=== PATIENT | female | born 1995 | race Caucasian/White ===

== ENCOUNTER 2018-06-07 18:34 | Outpatient (REF) | payer SELFPAY | END 2018-06-07 18:54 | LOC: LBN 18:34 | PROVIDERS: PCP Nurse Practitioner Family; Visit Provider Nurse Practitioner Family | DX: J02.9 Acute pharyngitis, unspecified (principal) | CPT/HCPCS: 87070 ==

== ENCOUNTER 2018-09-13 10:25 | Outpatient (CLI) | payer MEDICAID, SELFPAY ==
[2018-09-13 12:08] LABS: HCG Quant, Pregnancy 2 mIU/mL (1-3)
== END 2018-09-13 10:45 ==
PROVIDERS: PCP Nurse Practitioner Family; Visit Provider Nurse Practitioner Family
DX: N92.6 Irregular menstruation, unspecified (principal)
CPT/HCPCS: 36415; 84702

== ENCOUNTER 2018-11-12 10:29 | Outpatient (CLI) | payer MEDICAID, SELFPAY ==
[2018-11-12 11:18] LABS: Abs Immature Grans 0.01 k/cumm (0.0-0.09); Absolute Basophil Count 0.01 k/cumm (0.0-0.2); Absolute Eosinophil Count 0.03 k/cumm (0.0-0.7); Absolute Lymphocyte Count 1.73 k/cumm (1.2-3.4); Absolute Monocyte Count 0.36 k/cumm (0.11-0.7); Absolute Neutrophil Count 4.74 k/cumm (1.2-6.7); Basophils % 0.1; Eosinophils % 0.4; HCT 37.1 % (36.0-46.0); HGB 13.3 g/dL (12.0-15.5); Immature Grans % 0.1; Lymphocytes % 25.1; Mean Corp. HGB Concentration 35.8 g/dL (32.0-36.0); Mean Corpuscular Hemoglobin 31.9 pg (27.0-33.0); Mean Platelet Volume 9.8 fL (8.0-11.0); Monocytes % 5.2; Neutrophils % 69.1; Platelet Count 229 x1000/uL (130-400); RBC 4.17 m/cumm (4.00-5.20); RBC Distribution Width 11.5 % (11.7-14.6); White Blood Cell Count 6.88 k/cumm (4.4-10.8)
[2018-11-13 10:38] LABS: HIV-1/2 Ag & Ab Screen Negative (NEGAT)
[2018-11-15 09:17] LABS: Hepatitis B Surface Ag Negative (NEGAT)
[2018-11-15 09:49] LABS: Hepatitis C Ab w Rflx HCV PCR Negative (NEGAT)
[2018-11-15 12:45] LABS: Syphilis Serology (RPR) Negative (Negative)
[2018-11-15 12:48] LABS: Rubella IgG Ab (UVM) Positive; Varicella IgG Antibody Positive
== END 2018-11-12 10:49 ==
PROVIDERS: PCP Nurse Practitioner Family; Visit Provider Advanced Practice Midwife
DX: Z34.91 Encounter for supervision of normal pregnancy, unspecified, first trimester (principal); Z11.4 Encounter for screening for human immunodeficiency virus [HIV]; Z01.84 Encounter for antibody response examination; Z11.59 Encounter for screening for other viral diseases
CPT/HCPCS: 36415; 80055; 86787; 86803; 86850; 86900; 86901; 87340; 87389; 86592; 86762

== ENCOUNTER 2018-11-12 12:36 | Outpatient (REF) | payer MEDICAID, SELFPAY ==
[2018-11-12 18:50] LABS: *AMPHETAMINES SCREEN URINE Negative (Negative); *BARBITURATES SCREEN URINE Negative (Negative); *BENZODIAZEPINES SCREEN URINE Negative (Negative); Cannabinoids THC Negative (Negative); Cocaine Screen,Urine Negative (Negative); METHADONE URINE SCREEN Negative (Negative); OPIATES URINE SCREEN Negative (Negative)
[2018-11-12 19:03] LABS: Tricyclic Antidepressants Negative (Negative)
[2018-11-15 14:36] LABS: Chlamydia Result Negative; GC Result Negative; Specimen Description URINE
[2018-11-15 17:17] LABS: Buprenorphine Negative; Norbuprenorphine Negative
== END 2018-11-12 12:56 ==
LOC: LBN 12:36
PROVIDERS: PCP Nurse Practitioner Family; Visit Provider Advanced Practice Midwife
DX: Z34.91 Encounter for supervision of normal pregnancy, unspecified, first trimester (principal); Z11.3 Encounter for screening for infections with a predominantly sexual mode of transmission
CPT/HCPCS: 80307; 87491; 87591; 87086

== ENCOUNTER 2018-12-10 11:02 | Outpatient (CLI) | payer MEDICAID, SELFPAY ==
[2018-12-10 11:27] LABS: Kit/Specimen SENT
== END 2018-12-10 11:22 ==
PROVIDERS: PCP Nurse Practitioner Family; Visit Provider Advanced Practice Midwife
DX: Z34.91 Encounter for supervision of normal pregnancy, unspecified, first trimester (principal); Z36.89 Encounter for other specified antenatal screening
CPT/HCPCS: 36415

== ENCOUNTER 2019-01-27 00:48 | Outpatient (CLI) | payer MEDICAID, SELFPAY ==
--- NOTE | 2019-01-27 08:04 | DI.US_ITS ---
Predicted Gestational Age: Indication/History: ROUTINE CARE,Z34.90 18.5 Wks Range: 17.5 to 19.5 Prior US done on: Determined by: First US LMP History EDC by prior US: 06/25/19 For multiple gestations: Baby PLACENTA: Grade: I Location: Anterior Posterior X PRESENTATION: RT LT LOW LYING PREVIA Cephalic X Trans (Head RT LT ) Varied Breech BIOMETRY: Anatomy Identified: BPD: 40 mm 18.1 wks 4 chamber Heart X Heart Rate 158 BPM HC: 154 mm 18.3 wks LVOT X Post Fossa X AC: 122 mm 17.6 wks RVOT X Ventricles X FL: 26 mm 18 wks Stomach X Nose X Bladder X Lips X Cisterna Magna: 2.1 mm CI: 77 Kidneys X Palate X Cerebellum: 1.86 mm 3 vessel cord X Spine X EFW: 217 grms 11 th % Cord Insertion X NS= not seen Composite Age (US) 18.1 wks Many abnormalities cannot be diagnosed. A normal exam does not exclude congenital abnormality. EDC by US 06/29/19 Amniotic Fluid Index: Normal COMMENTS: RUQ: LUQ: RLQ: LLQ: Total: cm Biophysical Profile: Score 0/2 JOHAN (>2cm) Respirations (>30 sec) Body flexion/extension Extremity flexion/extension TOTAL SCORE Please see the OB ultrasound worksheet for complete details.
[2019-01-28 17:38] LABS: AFP 51.8 ng/mL; Calculated age at EDD 24 years; Cigarette smoking status non-smoker; GA used in risk estimate Scan estimate; IVF Pregnancy No; Initial or repeat testing Initial testing; Insulin dependent diabetes No; Maternal Weight 120 lbs; Number of Fetuses 1; Physician Phone Number 802-748-7300; Prev Pregnancy w/NTD No; RECOMMENDED FOLLOW UP None.; Results Summary Normal risk
== END 2019-01-27 01:08 ==
PROVIDERS: PCP Nurse Practitioner Family; Visit Provider Advanced Practice Midwife
DX: Z34.92 Encounter for supervision of normal pregnancy, unspecified, second trimester (principal); Z36.89 Encounter for other specified antenatal screening
CPT/HCPCS: 36415; 76805; 82105

== ENCOUNTER 2019-04-08 08:39 | Outpatient (CLI) | payer MEDICAID, SELFPAY ==
[2019-04-08 09:43] LABS: Glucose,1 Hr (Glucola) 142 mg/dL (80-140)
[2019-04-08 10:07] LABS: HGB 11.5 g/dL (12.0-15.5); Mean Corp. HGB Concentration 34.8 g/dL (32.0-36.0); Mean Corpuscular Hemoglobin 33.1 pg (27.0-33.0); Mean Corpuscular Volume 95.1 fL (80-95); Mean Platelet Volume 9.6 fL (8.0-11.0); Platelet Count 215 x1000/uL (130-400); RBC 3.47 m/cumm (4.00-5.20); RBC Distribution Width 12.8 % (11.7-14.6); White Blood Cell Count 7.59 k/cumm (4.4-10.8)
== END 2019-04-08 08:59 ==
PROVIDERS: Advanced Practice Midwife; PCP Nurse Practitioner Family; Visit Provider Advanced Practice Midwife
DX: Z34.93 Encounter for supervision of normal pregnancy, unspecified, third trimester (principal)
CPT/HCPCS: 36415; 82950; 85027

== ENCOUNTER 2019-04-12 09:11 | Outpatient (CLI) | payer MEDICAID, SELFPAY ==
[2019-04-12 11:20] LABS: Glucose 1 Hour 167 mg/dL
[2019-04-12 13:08] LABS: Glucose 3 Hour 138 mg/dL
== END 2019-04-12 09:31 ==
PROVIDERS: PCP Nurse Practitioner Family; Visit Provider Advanced Practice Midwife
DX: R73.09 Other abnormal glucose (principal)
CPT/HCPCS: 36415; 82951

== ENCOUNTER 2019-05-27 11:29 | Outpatient (CLI) | payer MEDICAID, SELFPAY ==
[2019-05-27 12:10] LABS: HCT 34.4 % (36.0-46.0); HGB 11.6 g/dL (12.0-15.5); Mean Corp. HGB Concentration 33.7 g/dL (32.0-36.0); Mean Corpuscular Hemoglobin 32.3 pg (27.0-33.0); Mean Corpuscular Volume 95.8 fL (80-95); Mean Platelet Volume 9.3 fL (8.0-11.0); Platelet Count 224 x1000/uL (130-400); RBC 3.59 m/cumm (4.00-5.20); RBC Distribution Width 13.7 % (11.7-14.6); White Blood Cell Count 7.52 k/cumm (4.4-10.8)
== END 2019-05-27 11:49 ==
PROVIDERS: PCP Nurse Practitioner Family; Visit Provider Advanced Practice Midwife
DX: Z34.91 Encounter for supervision of normal pregnancy, unspecified, first trimester (principal)
CPT/HCPCS: 36415; 85027

== ENCOUNTER 2019-05-27 14:43 | Outpatient (REF) | payer MEDICAID, SELFPAY ==
[2019-05-27 15:48] LABS: *AMPHETAMINES SCREEN URINE Negative (Negative); *BARBITURATES SCREEN URINE Negative (Negative); *BENZODIAZEPINES SCREEN URINE Negative (Negative); Cannabinoids THC Negative (Negative); Cocaine Screen,Urine Negative (Negative); METHADONE URINE SCREEN Negative (Negative); OPIATES URINE SCREEN Negative (Negative)
[2019-05-27 16:24] LABS: Tricyclic Antidepressants Negative (Negative)
[2019-06-02 10:01] LABS: Buprenorphine Negative
== END 2019-05-27 15:03 ==
LOC: LBN 14:43
PROVIDERS: PCP Nurse Practitioner Family; Visit Provider Advanced Practice Midwife
DX: Z34.93 Encounter for supervision of normal pregnancy, unspecified, third trimester (principal); Z36.85 Encounter for antenatal screening for Streptococcus B
CPT/HCPCS: 80307; 87081

== ENCOUNTER 2019-06-17 16:18 | Inpatient (IN) | payer MEDICAID, SELFPAY ==
[2019-06-17 18:22] LABS: HCT 33.5 % (36.0-46.0); HGB 11.2 g/dL (12.0-15.5); Mean Corp. HGB Concentration 33.4 g/dL (32.0-36.0); Mean Corpuscular Hemoglobin 31.5 pg (27.0-33.0); Mean Corpuscular Volume 94.4 fL (80-95); Mean Platelet Volume 9.8 fL (8.0-11.0); Platelet Count 228 x1000/uL (130-400); RBC 3.55 m/cumm (4.00-5.20); RBC Distribution Width 13.5 % (11.7-14.6); White Blood Cell Count 6.96 k/cumm (4.4-10.8)
[2019-06-18] MEDS: Ibuprofen 600 MG TAB PO ×3 (03:14→21:05)
[2019-06-18] MEDS: miSOPROStol 200 MCG TAB 400 MCG SL (04:23)
[2019-06-18] MEDS: Methylergonovine 0.2 MG/ML VIAL IM (04:40)
[2019-06-18] MEDS: oxyCODONE 5 mg/Acetaminophen 325 mg TAB 1 TAB PO (05:36)
[2019-06-18 13:10] LABS: HCT 25.9 % (36.0-46.0); HGB 8.7 g/dL (12.0-15.5); Mean Corp. HGB Concentration 33.6 g/dL (32.0-36.0); Mean Corpuscular Hemoglobin 31.9 pg (27.0-33.0); Mean Corpuscular Volume 94.9 fL (80-95); Platelet Count 172 x1000/uL (130-400); RBC 2.73 m/cumm (4.00-5.20); RBC Distribution Width 13.3 % (11.7-14.6); White Blood Cell Count 12.17 k/cumm (4.4-10.8)
[2019-06-18] MEDS: Lactated Ringers 1,000 ML 125 ML IV ×2 (14:00→22:33)
[2019-06-18] MEDS: Acetaminophen 325 MG TAB (16:18)
[2019-06-18] MEDS: Hamamelis Leaf/Glycerin 100 EACH BOX PR (16:45)
[2019-06-18] MEDS: Normal Saline Flush 10 ML SYR IVP (16:46)
[2019-06-19] MEDS: Lactated Ringers 1,000 ML 125 ML IV (06:04)
[2019-06-19 07:24] LABS: HCT 23.5 % (36.0-46.0); HGB 7.5 g/dL (12.0-15.5); Mean Corp. HGB Concentration 31.9 g/dL (32.0-36.0); Mean Corpuscular Hemoglobin 31.4 pg (27.0-33.0); Mean Corpuscular Volume 98.3 fL (80-95); Mean Platelet Volume 9.4 fL (8.0-11.0); Platelet Count 157 x1000/uL (130-400); RBC 2.39 m/cumm (4.00-5.20); RBC Distribution Width 13.7 % (11.7-14.6)
[2019-06-19] MEDS: Acetaminophen 325 MG TAB 650 MG PO (10:49)
[2019-06-19] MEDS: Ibuprofen 600 MG TAB PO ×2 (10:49→20:05)
[2019-06-19] MEDS: Ferrous Sulfate 325 MG TAB PO (20:03)
[2019-06-19] MEDS: Sertraline 50 MG TAB PO (21:50)
[2019-06-20] MEDS: Ferrous Sulfate 325 MG TAB PO (08:35)
[2019-06-20] MEDS: Ibuprofen 600 MG TAB PO (08:35)
[2019-06-20 09:51] LABS: HCT 25.1 % (36.0-46.0); Mean Corp. HGB Concentration 31.9 g/dL (32.0-36.0); Mean Corpuscular Hemoglobin 31.5 pg (27.0-33.0); Mean Corpuscular Volume 98.8 fL (80-95); Mean Platelet Volume 9.5 fL (8.0-11.0); Platelet Count 166 x1000/uL (130-400); RBC 2.54 m/cumm (4.00-5.20); RBC Distribution Width 13.6 % (11.7-14.6); White Blood Cell Count 7.96 k/cumm (4.4-10.8)
[2019-06-20] MEDS: Hamamelis Leaf/Glycerin 100 EACH BOX PR (12:00)
== END 2019-06-20 12:40 | disposition home or self-care (01) | DRG 806 ==
PROVIDERS: Admitting Provider Advanced Practice Midwife; PCP Nurse Practitioner Family; Visit Provider Advanced Practice Midwife
DX: O42.02 Full-term premature rupture of membranes, onset of labor within 24 hours of rupture (principal); O72.2 Delayed and secondary postpartum hemorrhage; Z37.0 Single live birth; D62 Acute posthemorrhagic anemia; O99.354 Diseases of the nervous system complicating childbirth; Z3A.38 38 weeks gestation of pregnancy; O69.2XX0 Labor and delivery complicated by other cord entanglement, with compression, not applicable or unspecified; O99.344 Other mental disorders complicating childbirth; Z87.59 Personal history of other complications of pregnancy, childbirth and the puerperium; F41.9 Anxiety disorder, unspecified; G25.81 Restless legs syndrome
CPT/HCPCS: 36415; 85027; 86850; 86900; 86901; J2210; J3490

== ENCOUNTER 2019-06-29 01:06 | Outpatient (CLI) | payer MEDICAID, SELFPAY ==
--- NOTE | 2019-06-29 14:41 | DI.US_ITS ---
EXAM: US EXTREMITY VENOUS BI CLINICAL HISTORY: Thrombosis of varicosity left groin I86.3 TECHNIQUE: Ultrasound performed using standard protocol. COMPARISON: No exams were available for comparison FINDINGS: Right lower extremity: No thrombus is visible. The deep venous system is freely compressible. The Doppler venous wave form augments normally. No superficial thrombophlebitis is seen. There is no ev idence of Mcconnell's cyst. Left lower extremity: There are dilated superficial veins in the left groin region which are noncompr essible and contain thrombus. The deep venous system appears patent. No deep venous thrombosis is s een. The Doppler venous wave form augments normally . IMPRESSION: Right: Negative right lower extremity ultrasound. Left: Superficial thrombophlebitis. No evidence of deep venous thrombosis.
== END 2019-06-29 01:26 ==
PROVIDERS: PCP Nurse Practitioner Family; Visit Provider Advanced Practice Midwife
DX: I82.812 Embolism and thrombosis of superficial veins of left lower extremity (principal)
CPT/HCPCS: 93970

== ENCOUNTER 2019-08-22 21:05 | Emergency (ER) | payer MEDICAID, SELFPAY ==
[2019-08-22 21:15] VITALS: BP 112/66; PULSE 98; RESP 16; TEMP 37.1; O2SAT 100
--- NOTE | 2019-08-22 21:31 | ED.GENADUL_ITS ---
Discharge Plan Disposition Patient Disposition: HOME Condition: Good Discharge Details Chief Complaint: GenMedical Clinical Impression: Mastitis Primary Care Provider: Unknown,Unknown ED Provider: Noemy Leiva Home Meds and New Rx's Prescriptions: New cephalexin [Keflex] 500 mg capsule 500 mg PO QID 10 Days Qty: 40 RF: 0 Continued Flintstones Complete (iron) tablet,chewable 2 tab PO DAILY RF: 0 norethindrone (contraceptive) [Sarita] 0.35 mg tablet 0.35 mg PO DAILY Qty: 84 RF: 3 sertraline [Zoloft] 50 mg tablet 50 mg PO DAILY Qty: 30 RF: 11 Discharge Instructions Instructions: Cephalexin (By mouth), Mastitis (ED) Additional Instructions: Encourage hydration. May continue with Tylenol and/or Ibuprofen as needed for discomfort. Warm compresses. Please see information attached. Please follow recommendations made by [employer]OR OF [employer]UD[employer]. Please take the Keflex four times daily as prescribed. Please follow up with DIRECTOR OF STUDENT FINANCIAL SERVICES at the end of the wek for reevaluation. If you develop increased swelling, increased pain or other new/worsening sympt oms please seek care urgently once again. Referrals: Giovana Lovelace MD [ [facility] STAFF PHYSICIAN] - Medical Decision Making Patient is a 24-year-old female presenting today with chief complaint of right breast pain. She reports that she is 2 months . Has been doing well regards to breast-feeding until the past few days. Her child had an abrupt change in sleeping habits and went from waking several times at night now sleeping 6 hours at 1 time. States that this is been going on for the past 3 days. During that time, she is noted increased pain in the right breast. States that the pain has increased along the lateral aspect of the right breast at the 9 o'clock position. She has been able to feel a palpable area of firmne ss in this area. States that then today she had a temp of 103 ?F at home. Currently afebrile. She did take Tylenol after noting the fever. She has continued to breast-feed. No abnormal discharge. Recent skin. Mild, 1 cm in circumference area above pink skin. Subjectively warm to the touch. She is exquisitely tender over this area. I did explore the area with an ultrasound and I am able to see ducts but did not appreciate any specific area suggestive of abscess. We will begin the patient on Keflex empirically for mastitis given symptoms and infection. We discussed care. She was given education on mastitis. Advised that she follow-up with [facility] within the week for reevaluation. She was given strict return precautions. All of her questions concerns were addressed in agreement this plan. HPI General Mode of arrival: ambulatory . Date/Time Provider Initiated Documentation: 08/22/19 21:31 . Limitations to Documentation: no limitations . Information obtained by: patient and RN notes reviewed . History of Present Illness 24 year old F presents to the emergency department with the chief complaint of right breast pain, fevers, described as moderate, with intensity rated at 4. Quality is described as aching, and is localized to the chest (right breast). Patient reports no radiation. Patient started experiencing this day(s) and it has been constant. No relieving factors improve symptom(s), No exacerbating factors reported . Patient notes fever/chills; denies cough, diaphoresis, loss of appetite, nausea/vomiting, rash, shortness of breath and weakness. Patient did receive the following treatments prior to arrival, other (tylenol) Related Data Home Medications Medication Instructions Recorded Confirmed pediatric [id number] 2 tab PO DAILY tab 11/12/18 08/22/19 sertraline 50 mg tablet 50 mg PO DAILY #30 tab 04/22/19 08/22/19 norethindrone (contraceptive) 0.35 0.35 mg PO DAILY #84 tab 08/04/19 08/22/19 mg tablet cephalexin [Keflex] 500 mg PO QID 10 Days #40 cap 08/22/19 Previous Rx's Medication Instructions Recorded sertraline 50 mg tablet 50 mg PO DAILY #30 tab 04/22/19 norethindrone (contraceptive) 0.35 0.35 mg PO DAILY #84 tab 08/04/19 mg tablet cephalexin [Keflex] 500 mg PO QID 10 Days #40 cap 08/22/19 Allergies Allergy/AdvReac Type Severity Reaction Status Date / Time phenazopyridine HCl AdvReac Intermediate nausea,vomiting, Verified 08/22/19 21:21 [From Pyridium] dizziness General Stated Complaint: GenMedical NEELIMA: 3 Review of Systems Constitutional Constitutional: Reports as per HPI, Denies chills, Reports fatigue, Reports fever(s) and Denies poor appetite Cardiovascular Cardiovascular: Denies edema, Denies radiating jaw, neck or arm pain, Denies dyspnea and Denies dyspnea on exertion Respiratory Respiratory: Denies cough, Denies hemoptysis, Denies dyspnea and Denies dyspnea on exertion Gastrointestinal Gastrointestinal: Denies abdominal pain, Denies nausea and Denies vomiting Genitourinary Genitourinary: Denies dysuria, Denies urinary urgency and Denies vaginal discharge Musculoskeletal Musculoskeletal: Reports as per HPI Integumentary/Breasts Skin/Breast: Reports as per HPI, Reports breast swelling, Denies breast skin changes, Reports breast pain and Denies change in breast shape Neurologic Neurologic: Reports as per HPI, Denies sensory deficit and Denies paresthesias Endocrine Endocrine: Reports fatigue [facility] Medical History Anxiety (Chronic) 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 Parent divorce precipitating factor. Citalopram off and on. Stopped before conception. History of hemorrhage (Acute) Migraine headache with aura (Chronic) (Acute) Transvaginal dating ultrasound 6,5 weeks CRL 0.815 + FHR GREGORIO 06/25/19 FINAL GREGORIO 06/25/19 Stomach ulcer (Resolved) Has been on prilosec Ulcer (Chronic) age 15 Social History Smoking/Tobacco Use Status: Never Alcohol Intake: never Drug use: Never Substance use type: former substance user Adopted: No Caregiver/Support person: No Foster care: No Household members: spouse and children Number of Children: 1 Pets and animals: Yes (2 dogs) Current gender identity: female What is your relationship status?: Panel score (0-1 are the most socially isolated patients): 1 Frequency: 3-4 times per week Special avery needs: No Seatbelt use: always Helmet use: Yes 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 Date GA/Weeks # Outcome Route Wgt Sex Labor Lgth Anesthes ia Location Prov Complic 01/06/17 38 No Successful vaginal 3.005 kg Female 5 hrs [facility] - Anea hemorrhage transfusion 06/18/19 39 No Successful vaginal 3.26 kg Female A hannah Rubi, CNM hemorrhage Delivery Date: 01/06/17 On 05/06/19 @ 11:23 Melissa Hernandez used nitrous only, fast labor, retained placenta with PPH and required blood transfusions x2 Delivery Date: 06/18/19 On 06/23/19 @ 12:55 Jade Alicia Heavy bleeding started about one hour after delivery. Exam Const General: cooperative, healthy appearing, comfortable, no acute distress and well developed Nutritional Appearance: average body habitus and well nourished Orientation: alert and awake Chest Breast inspection: normal inspection of the breasts and normal inspection of the axillae Breast palpation: normal palpation of the axillae, no axillary lymphadenopathy and abnormal palpation of the breast (Patient has tenderness and firm area at the 9 o'clock) Resp Effort & Inspection: normal respiratory effort, able to speak in complete sentences and no respiratory distress Auscultation: clear to auscultation bilaterally Cardio Rate: regular rate Rhythm: regular rhythm Heart Sounds: S1 normal and S2 normal GI Inspection: normal to inspection Palpation: soft, no hepatosplenomegaly, no guarding and nontender Auscultation: normal bowel sounds Skin General skin exam: erythema (mild erythema 9 o'clock position of the right breast) Lesions: no lesions Trauma: no lacerations or abrasions Wounds: no wounds Neuro General: alert and awake Cognition: normal cognition Speech: speech normal Gait: normal gait Sensory Exam: no sensory deficits noted Psych Appearance: grossly normal and well kempt Mental Status: mental status grossly normal Speech and Movement: speech and movement normal Course Vital Signs Vital signs: Vital Signs Temperature 37.1 C 08/22/19 21:15 Pulse 98 H 08/22/19 21:15 Respiratory Rate 16 08/22/19 21:15 Blood Pressure 112/66 08/22/19 21:15 Pulse Oximetry 100 08/22/19 21:15 Temperature 37.1 C 08/22/19 21:15 Temperature Source Skin 08/22/19 21:15 Pulse 98 H 08/22/19 21:15 Respiratory Rate 16 08/22/19 21:15 Respiratory Effort 08/22/19 21:15 Respiratory Depth Normal 08/22/19 21:15 Blood Pressure 112/66 08/22/19 21:15 Pulse Oximetry 100 08/22/19 21:15 Oxygen Delivery Method Room Air 08/22/19 21:15 Oxygen Flow Rate 0 08/22/19 21:15 Pain Level 4 08/22/19 21:15
[2019-08-22] MEDS: Ibuprofen 600 MG TAB PO (22:18)
[2019-08-22] MEDS: Cephalexin 500 MG CAP PO ×2 (22:20→22:21)
[2019-08-22 22:31] VITALS: BP 117/62; PULSE 90; RESP 16; TEMP 37.3
== END 2019-08-22 22:30 | disposition home or self-care (01) ==
PROVIDERS: Emergency Provider Physician Assistant
DX: N61.0 Mastitis without abscess (principal); R50.9 Fever, unspecified
CPT/HCPCS: 99283

== ENCOUNTER 2021-07-04 21:12 | Outpatient (REF) | payer MEDICAID, SELFPAY ==
[2021-07-06 09:28] LABS: COVID-19 RT-PCR UVMMC Result Negative (Negative)
== END 2021-07-04 21:13 | disposition home or self-care (01) ==
LOC: NCHCN 21:12
PROVIDERS: PCP Nurse Practitioner Family; Visit Provider Nurse Practitioner
DX: Z20.822 Contact with and (suspected) exposure to COVID-19 (principal); R05.8 Other specified cough
CPT/HCPCS: U0003

== ENCOUNTER 2021-08-02 19:03 | Outpatient (REF) | payer MEDICAID, SELFPAY ==
[2021-08-02 18:25] LABS: Bilirubin Negative (Negative); Blood Negative (Negative); Clarity Clear (Clear); Glucose Negative (Negative); Ketones Negative (Negative); Leukocyte Esterase Negative (Negative); Nitrite Negative (Negative); Urobilinogen 0.2 EU/dL (Up TO 0.2)
== END 2021-08-02 19:04 | disposition home or self-care (01) ==
LOC: LBN 19:03
PROVIDERS: PCP Nurse Practitioner Family; Visit Provider Nurse Practitioner Family
DX: R39.15 Urgency of urination (principal)
CPT/HCPCS: 81003

== ENCOUNTER 2021-08-05 17:16 | Outpatient (REF) | payer MEDICAID, SELFPAY ==
[2021-08-07 13:44] LABS: Chlamydia Result Negative (Negative); GC Result Negative (Negative)
== END 2021-08-05 17:17 | disposition home or self-care (01) ==
LOC: LBN 17:16
PROVIDERS: PCP Nurse Practitioner Family; Visit Provider Nurse Practitioner Women's Health
DX: Z11.3 Encounter for screening for infections with a predominantly sexual mode of transmission (principal)
CPT/HCPCS: 87491; 87591

== ENCOUNTER 2021-08-08 10:21 | Outpatient (CLI) | payer MEDICAID, SELFPAY ==
--- NOTE | 2021-08-08 10:15 | DI.US_ITS ---
Exam(s) US PELVIS TRANSVAGINAL EXAM: US PELVIS TRANSVAGINAL CLINICAL HISTORY: R sided pelvic pain and pressure, R10.2 TECHNIQUE: Ultrasound of the pelvis was performed both transabdominal and transvaginal. COMPARISON: US US EXTREMITY VENOUS BI from 06/29/2019 FINDINGS: UTERUS: Nongravid and anteverted Measures 6 cm length x 3.8 cm AP x 4 cm wide. There are no uterine fibroids. Endometrial thickness measures 5.7 mm. There is no fluid in the endometrial canal. CERVIX: There are no obvious nabothian cysts. RIGHT OVARY: Measures 0.2 x 1.9 x 3.3 cm No significant cysts nor masses evident in the right ovary. LEFT OVARY: Measures 2.6 x 1.6 x 2.1 cm In addition to small sub cm follicular cysts there is also a slightly larger 1.2 x 1.2 x 1.1 cm exoph ytic appearing cyst off the left ovary. This is non septated. CUL-DE-SAC: Tiny amount of fluid in the cul-de-sac noted IMPRESSION: 1. Normal appearing uterus and age-appropriate endometrium. 2. Addition to sub cm follicular cysts in the ovaries there is a slightly larger 12 x [address] partially exophytic non septated cyst in the left ovary. 3. Small amount of fluid in the cul-de-sac. Incidentally noted is slight dilatation of the right kidney collecting system. DATA REPOSITORY:
== END 2021-08-08 10:41 ==
PROVIDERS: PCP Nurse Practitioner Family; Visit Provider Nurse Practitioner Women's Health
DX: R10.2 Pelvic and perineal pain (principal); N83.202 Unspecified ovarian cyst, left side
CPT/HCPCS: 76830; 76856

== ENCOUNTER 2021-08-09 14:42 | Outpatient (REF) | payer MEDICAID, SELFPAY ==
--- NOTE | 2021-08-09 14:00 | PAPFT_PTH ---
PATIENT: Cherelle Ornelas LOC: N U#:[id number] AGE/SX: 26/F ROOM: RE08/09/[address]: ADEN Rose : 1995 BED: DIS: 08/09/2021 SPEC #: [id number] RECD: 08/09/21 16:47 STATUS: TONY REQ #: [id number] MARLYS: 08/09/21 14:[address]: Cherelle Huynh DEPT: [facility] Cytology RECD BY: Amalia Rivera ENTERED: 08/09/21 16:47 SP TYPE: PAPFT OTHR DR: ADEN Pitts Tissues: 1 - CX/ENDOCX FOR PAP SMEARS Procedures: PAP THIN PREP/[facility] Screening Comments: [id number]
== END 2021-08-09 14:43 | disposition home or self-care (01) ==
LOC: LBN 14:42
PROVIDERS: PCP Nurse Practitioner Family; Visit Provider Nurse Practitioner Family
DX: R10.2 Pelvic and perineal pain (principal); Z12.4 Encounter for screening for malignant neoplasm of cervix
CPT/HCPCS: 88142; 87086

== ENCOUNTER 2021-08-26 01:13 | Outpatient (CLI) | payer MEDICAID, SELFPAY ==
--- NOTE | 2021-08-26 07:00 | DI.CT_ITS ---
Exam(s) CT ABDOMEN PELVIS WO/W EXAM: CT ABDOMEN PELVIS WO/W CLINICAL HISTORY: r/o ureteral stone,hematuria,rt hydronephrosis,r31.29,n13.30. TECHNIQUE: Imaging Protocol: Axial computed tomography images with coronal and sagittal reformatted images were created and reviewed CONTRAST MATERIAL: Intravenous: Omnipaque 100cc Oral: None COMPARISON: No exams were available for comparison FINDINGS: VISUALIZED LUNG BASES: No nodules nor pleural effusions evident. ABDOMEN: There is no ascites. LIVER: There are no focal hepatic lesions evident . GALLBLADDER/BILIARY: No obvious gallbladder pathology. CBD is not dilated. PANCREAS: No evidence of pancreatic mass nor dilatation of the pancreatic duct. SPLEEN: Spleen is not enlarged. No obvious intrasplenic lesions. Splenic and portal veins are paten t. ADRENALS: There are no significant adrenal masses. KIDNEYS:There is a tiny 1 millimeter nonobstructive calculus at the midpole level of the right kidney . No other calculi evident in either kidney. No hydronephrosis no cyst or solid renal masses. No p erinephric streaking nor perinephric fluid.. There is a solitary nondilated ureter on each side. No obvious calculi nor mass in the urinary bladd er. No diverticuli in the bladder evident. ABDOMINAL AORTA: Abdominal aorta is not enlarged. LYMPH NODES:There is no retroperitoneal nor paraaortic adenopathy. ABDOMINAL WALL: No evidence of significant anterior abdominal wall nor inguinal hernia. GI: There is no evidence of bowel obstruction, free air, nor abscess. Speckled hyperdense material seen throughout the colon most probably from ingested medication. PELVIS: GI: The appendix appears to be surgically absentno evidence of sigmoid diverticulitis. LYMPH NODES: There is no intrapelvic nor inguinal adenopathy. REPRODUCTIVE: Uterus appears unremarkable. Adnexal regions appear unremarkable. No free fluid URINARY BLADDER: No calculi nor obvious masses evident OSSEOUS: No significant osseous lesions. IMPRESSION: 1. There is a tiny 1 millimeter nonobstructive calculus at midpole level of the right kidney. No oth er calculi evident and no hydronephrosis nor hydroureter. Also no calculi in the urinary bladder. N o other focal renal findings. 2. Appendix appears to be surgically absent. RADIATION DOSE DELIVERED: 1,602.87mGy.cm Total DLP DATA REPOSITORY: All CT scans at this facility are submitted to the National Radiology Data Registry (NRDR) Dose Index Registry (DIR) with the [employer] (ACR). RADIATION OPTIMIZATION: All CT scans at this facility use at least one of these dose optimization te chniques: automated exposure control; mA and/or kV adjustment per patient size (includes targeted exa ms where dose is matched to clinical indication); or iterative reconstruction.
[2021-08-26] MEDS: Omnipaque 350 MG/ML 100 ML BTL IJ (08:29)
[2021-08-26] MEDS: Normal Saline Flush 10 ML SYR IVP (08:31)
== END 2021-08-26 01:33 ==
PROVIDERS: PCP Nurse Practitioner Family; Visit Provider Urology
DX: N13.30 Unspecified hydronephrosis (principal); R31.29 Other microscopic hematuria; N20.0 Calculus of kidney
CPT/HCPCS: 74178; J3490

== ENCOUNTER 2023-08-07 11:24 | Outpatient (CLI) | payer MEDICAID, SELFPAY ==
[2023-08-07 12:53] LABS: Anion Gap 7.6 mmol/L (3-11); BUN 9 mg/dL (7-18); CO2 30.4 mmol/L (21.0-32.0); CREATININE 0.9 mg/dL (0.55-1.02); Calcium 9.2 mg/dL (8.5-10.1); Calculated LDL 134 mg/dL (<100); Chloride 106 mmol/L (98-107); Cholesterol 202 mg/dL (<200); Glucose 90 mg/dL (74-106); HDL Cholesterol 42 mg/dL (40-60); Sodium 144 mmol/L (136-145); Triglyceride 131 mg/dL (<150)
== END 2023-08-07 11:25 | disposition home or self-care (01) ==
LOC: LOS 11:24
PROVIDERS: PCP Nurse Practitioner Family; Referring Provider Nurse Practitioner Family; Visit Provider Nurse Practitioner Family
DX: Z00.00 Encounter for general adult medical examination without abnormal findings (principal)
CPT/HCPCS: 36415; 80048; 80061; 84443

== ENCOUNTER 2024-09-01 15:34 | Outpatient (REF) | payer MEDICAID, SELFPAY ==
[2024-09-01 21:41] LABS: Abs Immature Grans 0.01 10^3/uL (0.0-0.06); Absolute Basophil Count 0.02 10^3/uL (0.0-0.2); Absolute Eosinophil Count 0.03 10^3/uL (0.0-0.7); Absolute Lymphocyte Count 1.45 10^3/uL (1.2-3.4); Absolute Monocyte Count 0.26 10^3/uL (0.1-0.8); Absolute Neutrophil Count 5.75 10^3/uL (1.2-6.7); Basophils % 0.3 %; Eosinophils % 0.4 %; HCT 40.5 % (36.0-46.0); HGB 14.2 g/dL (11.2-15.7); Immature Grans % 0.1 %; Lymphocytes % 19.3 %; MCH 31.9 pg (27.0-33.0); MCHC 35.1 % (32.0-36.0); MCV 91 fL (80-95); Monocytes % 3.5 %; Neutrophils % 76.4 %; Platelet Count 242 10^3/uL (130-400); RBC 4.45 10^6/uL (3.93-5.22); RDW 10.9 % (11.7-14.6); RDW-SD 36.8 fL; WBC 7.52 10^3/uL (4.4-10.8)
[2024-09-01 21:44] LABS: ESR < 1 mm/hr (0-20)
[2024-09-01 22:00] LABS: TSH (W/Ref FT4) 0.33 uIU/mL (0.36-3.74)
[2024-09-01 22:04] LABS: C-Reactive Protein < 0.50 mg/dL (<or=0.5)
[2024-09-01 22:22] LABS: FREE T4 0.85 ng/dL (0.76-1.46)
[2024-09-05 11:07] LABS: Lyme Ab w Rflx to Lyme Confirm Negative (Negative)
[2024-09-05 15:18] LABS: Anaplasma phagocytophilum Negative (Negative); B. miyamotoi PCR Negative (Negative); Babesia divergens/MO-1 Negative (Negative); Babesia duncani Negative (Negative); Babesia microti Negative (Negative); Ehrlichia chaffeensis Negative (Negative); Ehrlichia ewingii/canis Negative (Negative); Ehrlichia muris eauclairensis Negative (Negative)
== END 2024-09-01 15:35 | disposition home or self-care (01) ==
LOC: LBN 15:34
PROVIDERS: PCP Nurse Practitioner Family; Visit Provider Nurse Practitioner Family
DX: R51.9 Headache, unspecified; R52 Pain, unspecified; M54.2 Cervicalgia; G44.209 Tension-type headache, unspecified, not intractable
CPT/HCPCS: 85652; 87798; 84439; 84443; 85025; 86140; 86618

== ENCOUNTER 2024-12-05 12:26 | Outpatient (REF) | payer MEDICAID, SELFPAY ==
--- NOTE | 2024-12-05 11:30 | PAPFT_PTH ---
PATIENT: Cherelle Ornelas LOC: [facility] U#:[id number] AGE/SX: 29/F ROOM: RE12/05/[address]: ADEN Pitts : 1995 BED: DIS: 12/05/2024 SPEC #: [id number] RECD: 12/06/24 12:56 STATUS: TONY REQ #: [id number] MARLYS: 12/05/24 11:[address]: Sultana Strong [facility] Cytology RECD BY: Amalia Rivera Tissues: 1 - CX/ENDOCX FOR PAP SMEARS Procedures: PAP THIN PREP/[facility] Screening Comments: [id number]
== END 2024-12-05 12:27 | disposition home or self-care (01) ==
LOC: LBN 12:26
PROVIDERS: PCP Nurse Practitioner Family; Visit Provider Nurse Practitioner Family
DX: Z12.4 Encounter for screening for malignant neoplasm of cervix (principal)
CPT/HCPCS: 88142

== ENCOUNTER 2024-12-14 09:03 | Outpatient (CLI) | payer MEDICAID, SELFPAY ==
--- NOTE | 2024-12-14 14:08 | DI.RAD_ITS ---
Exam(s) XR CERVICAL SPINE COMP 4-5V EXAM: XR CERVICAL SPINE COMP 4-5V CLINICAL HISTORY: chronic neck pain M54.2 Cervicalgia. TECHNIQUE: 2D digital imaging was performed. Five views were performed. COMPARISON: No exams were available for comparison FINDINGS: BONES: No fracture or destructive lesion. Vertebral bodies are unremarkable. DISKS: Intervertebral disc spaces are maintained. ALIGNMENT: Some straightening of the normal cervical lordosis which could be secondary to muscle spas m. The alignment is otherwise normal. The odontoid and atlantoaxial articulations are normal. SOFT TISSUE: Normal. The lung apices are clear. IMPRESSION: No acute abnormality. DATA REPOSITORY: RADIATION DOSE DELIVERED:
== END 2024-12-14 09:23 ==
LOC: DI 09:03
PROVIDERS: PCP Nurse Practitioner Family; Visit Provider Nurse Practitioner Family
DX: M54.2 Cervicalgia (principal)
CPT/HCPCS: 72050

== ENCOUNTER 2025-08-20 10:34 | Emergency (ER) | payer MEDICAID, SELFPAY ==
[2025-08-20 10:37] VITALS: BP 134/70; PULSE 85; RESP 16; TEMP 36.6; O2SAT 95
--- NOTE | 2025-08-20 11:00 | DI.RAD_ITS ---
Exam(s) XR FOREARM LT EXAM: XR FOREARM LT CLINICAL HISTORY: kicked in forearm (mid)by horse. TECHNIQUE: 2D digital imaging was performed of the left forearm. Two views were obtained. AP and lateral views were obtained. COMPARISON: No exams were available for comparison FINDINGS: BONES: There is an acute minimally displaced comminuted fracture of the midshaft of the left ulna. No bony destructive lesion is seen. Visualized portion of elbow and wrist joints are unremarkable. SOFT TISSUE: Normal. IMPRESSION: 1. Acute comminuted fracture of the midshaft of the left ulna which is minimally displaced. 2. The preliminary [facility] report was reviewed. DATA REPOSITORY: RADIATION DOSE DELIVERED:
--- NOTE | 2025-08-20 11:50 | DI.[facility]_ITS ---
PROCEDURE INFORMATION: Exam: XR Left Forearm Exam date and time: 08/20/2025 11:32 AM Age: 30 years old Clinical indication: Injury or trauma; Other: Kicked in forearm (mid)by horse; Fracture, traumatic injury; Closed fracture; Ulna; Left TECHNIQUE: Imaging protocol: Radiologic exam of the left forearm. Views: 2 views. COMPARISON: US EXTREMITY VENOUS BI 06/29/2019 3:20 PM FINDINGS: Bones/joints: Minimally displaced comminuted fracture mid shaft of the left ulna Soft tissues: Normal. IMPRESSION: Minimally displaced comminuted fracture mid shaft of the left ulna Dictated and Authenticated by: Jazzy Patel MD. Orderin Elizabeth Holland MD
[2025-08-20] MEDS: MORPHine IR 15 MG TAB PO (12:11)
--- NOTE | 2025-08-20 12:30 | DI.RAD_ITS ---
Exam(s) XR ELBOW LT COMPLETE EXAM: XR ELBOW LT COMPLETE CLINICAL HISTORY: mid shaft ulna fx. TECHNIQUE: 2D digital imaging was performed of the left elbow. Four images were obtained. AP, lateral and oblique views were obtained. COMPARISON: CR,XR XR FOREARM LT from 08/20/2025 FINDINGS: BONES: The patient's known fracture of the midshaft of the ulna is visualized partially at the edge of the film. No bony destructive lesion is seen. JOINTS: The elbow is normally aligned. No joint effusion is seen. SOFT TISSUE: Normal. IMPRESSION: 1. There is no fracture or dislocation seen in the left elbow. 2. Patient has a known ulnar fracture which is partially visualized at the edge of the film. 3. The preliminary [facility] report was reviewed. DATA REPOSITORY: RADIATION DOSE DELIVERED:
--- NOTE | 2025-08-20 12:30 | DI.RAD_ITS ---
Exam(s) XR WRIST LT COMPLETE EXAM: XR WRIST LT COMPLETE CLINICAL HISTORY: mid shaft forearm fracture. TECHNIQUE: 2D digital imaging was performed of the left wrist. Three images were obtained. PA, oblique and lateral views were obtained. COMPARISON: No exams were available for comparison FINDINGS: BONES: No acute fracture is present. No bony destructive lesion is seen. JOINTS: The carpal bones are normally aligned. SOFT TISSUE: Normal. IMPRESSION: 1. Unremarkable radiographs of the left wrist. 2. The preliminary [facility] report was reviewed. DATA REPOSITORY: RADIATION DOSE DELIVERED:
--- NOTE | 2025-08-20 13:23 | DI.[facility]_ITS ---
PROCEDURE INFORMATION: Exam: XR Left Wrist Exam date and time: 08/20/2025 12:59 PM Age: 30 years old Clinical indication: Injury or trauma; Other: Mid shaft forearm fracture / kick by horse; Fracture, traumatic injury; Closed fracture; Ulna; Left TECHNIQUE: Imaging protocol: Radiologic exam of the left wrist. Views: 3 or more views. COMPARISON: CR XR FOREARM LT 08/20/2025 11:32 AM FINDINGS: Bones/joints: Normal. Soft tissues: Normal. IMPRESSION: No acute findings. Dictated and Authenticated by: Jazzy Patel MD. Orderin Elizabeth Holland MD
--- NOTE | 2025-08-20 13:24 | DI.[facility]_ITS ---
PROCEDURE INFORMATION: Exam: XR Left Elbow Exam date and time: 08/20/2025 1:02 PM Age: 30 years old Clinical indication: Injury or trauma; Other: Mid shaft forearm fracture; Fracture, traumatic injury; Closed fracture; Ulna; Left TECHNIQUE: Imaging protocol: Radiologic exam of the left elbow. Views: 3 or more views. COMPARISON: CR XR WRIST LT COMPLETE 08/20/2025 12:59 PM FINDINGS: Bones/joints: Normal. Soft tissues: Normal. IMPRESSION: No acute findings. Dictated and Authenticated by: Jazzy Patel MD. Orderin Elizabeth Holland MD
[2025-08-20] MEDS: Ketorolac 15 MG/ML VIAL IM (14:57)
--- NOTE | 2025-08-20 18:29 | W.ED.GENAD ---
Discharge Plan Disposition Patient Disposition: Home Condition: Stable Discharge Details Clinical Impression: Fracture of ulna Primary Care Provider: Sultana Strong ED Provider: Amalia Johnson Home Meds and New Rx's Prescriptions: New ondansetron 4 mg tablet,disintegrating 4 mg PO TID PRN3 Days Qty: 10 0RF cyclobenzaprine 10 mg tablet 10 mg PO TID PRNQty: 10 0RF oxycodone 5 mg capsule 5 mg PO BID PRNQty: 6 0RF Continued ibuprofen 800 mg tablet 800 mg PO Q8H PRN (Reason: pain) Qty: 60 2RF dextroamphetamine-amphetamine 10 mg capsule,extended release 24hr 10 mg PO DAILY MDD 10mg Qty: 28 0RF escitalopram oxalate 20 mg tablet 20 mg PO DAILY Qty: 90 3RF albuterol sulfate [ProAir HFA] 90 mcg/actuation HFA aerosol inhaler 2 puff inhalation Q6H PRN (Reason: shortness of breath or wheezing) Qty: 8.5 0RF Discharge Instructions Instructions: Forearm Fracture (DC), Cast Care ED Additional Instructions: I have written you for Flexeril and oxycodone, do not take these within 8 hours of each other The oxycodone can be addictive, do not operate a vehicle for 8 hours after taking this medicine You may take Zofran as needed as the oxycodone can make you nauseous if you choose to take this Ibuprofen every 8 hours with food, you may take Tylenol for breakthrough pain, elevate your arm is much as possible and wear your sling when you are out and about Please follow-up with orthopedics tomorrow You may apply ice to your arm over the splint Stand Alone Forms: Portal Information Referrals: Sultana Strong NP [Primary Care Provider, Medicine] Dann Garcia MD [ [facility] STAFF PHYSICIAN, Orthopaedic Surgical] Discharge Data Discharge Date/Time-TO BE ENTERED AT DEPARTURE: 08/20/25 15:08 HPI General Date/Time Provider Initiated Documentation: 08/20/25 10:37. HPI Narrative: This 30-year-old female presents with injury to left arm. She was kicked by her horses prior to arrival. States the pain radiates up to her arm. Denies any additional injuries or chance of . Denies strength or sensation changes in fingers. Denies history of coagulopathy or any other complaints at this time. Related Data Home Medications ?Medication ?Instructions ?Recorded ?Confirmed albuterol sulfate 90 mcg/actuation 2 puff inhalation Q6H PRN 02/01/24 08/20/25 aerosol inhaler (ProAir HFA) shortness of breath or wheezing #8.5 grams escitalopram oxalate 20 mg tablet 20 mg PO DAILY #90 tabs 12/05/24 08/20/25 dextroamphetamine-amphetamine ER 10 mg PO DAILY #28 caps 06/05/25 08/20/25 10 mg 24hr capsule,extend release ibuprofen 800 mg tablet 800 mg PO Q8H PRN pain #60 tabs 06/05/25 08/20/25 cyclobenzaprine 10 mg tablet 10 mg PO TID PRN #10 tabs 08/20/25 ondansetron 4 mg disintegrating 4 mg PO TID PRN 3 days #10 tabs 08/20/25 tablet oxycodone 5 mg capsule 5 mg PO BID PRN #6 caps 08/20/25 Previous Rx's ?Medication ?Instructions ?Recorded albuterol sulfate 90 mcg/actuation 2 puff inhalation Q6H PRN 02/01/24 aerosol inhaler (ProAir HFA) shortness of breath or wheezing #8.5 grams escitalopram oxalate 20 mg tablet 20 mg PO DAILY #90 tabs 12/05/24 dextroamphetamine-amphetamine ER 10 mg PO DAILY #28 caps 06/05/25 10 mg 24hr capsule,extend release ibuprofen 800 mg tablet 800 mg PO Q8H PRN pain #60 tabs 06/05/25 cyclobenzaprine 10 mg tablet 10 mg PO TID PRN #10 tabs 08/20/25 ondansetron 4 mg disintegrating 4 mg PO TID PRN 3 days #10 tabs 08/20/25 tablet oxycodone 5 mg capsule 5 mg PO BID PRN #6 caps 08/20/25 Allergies Allergy/AdvReac Type Severity Reaction Status Date / Time phenazopyridine HCl (From AdvReac Intermediate nausea,vomiting, Verified 08/20/25 10:43 Pyridium) dizziness General Stated Complaint: Orthopedic NEELIMA: 4 Exam Narrative Exam Narrative: Left arm with midshaft bruising forearm, swelling, neurovascularly intact, no tenderness to wrist or elbow Course Vital Signs Vital signs: Vital Signs Temperature 36.6 C 08/20/25 10:37 Pulse 85 08/20/25 10:37 Respiratory Rate 16 08/20/25 10:37 Blood Pressure 134/70 08/20/25 10:37 Pulse Oximetry 95 08/20/25 10:37 Temperature 36.6 C 08/20/25 10:37 Temperature Source Oral 08/20/25 10:37 Pulse 85 08/20/25 10:37 Respiratory Rate 16 08/20/25 10:37 Blood Pressure 134/70 08/20/25 10:37 Blood Pressure Position Sitting 08/20/25 10:37 Pulse Oximetry 95 08/20/25 10:37 Oxygen Delivery Method Room Air 08/20/25 10:37 Oxygen Flow Rate 0 08/20/25 10:37 Pain Level 8 08/20/25 12:11 Comment ice but denies otc relief 08/20/25 10:37 Lab/Test Results Lab/Test Results: POC- Test(urine) Negative Medical Decision Making Results: Midshaft ulna comminuted mildly displaced fracture, left wrist and left elbow do not show acute abnormality per radiology interpretation of my review POC negative Assessment and plan: Patient presenting with left arm injury just prior to arrival. Left ulna fracture on x-ray. Case discussed with Dr. Greenwood orthopedics. Recommends posterior slab splint placement and close outpatient follow-up. No findings consistent with compartment syndrome on my assessment. She remains neurovascularly intact. Patient had difficulty tolerating the posterior slab splint 4 inch secondary to discomfort with radiating pain. I did end up using a 3 inch posterior slab splint which patient was able to tolerate although not quite as protective. She remains neurovascularly intact post application of posterior slab splint and is tolerating this well. She is placed in a sling and she will be referred to orthopedics for close outpatient follow-up. Given several tabs of oxycodone should she need it at home. Placed on referral list for orthopedic follow-up in the outpatient setting. Return precautions discussed and patient expressed understanding. PFSH All Active Problems (Updated 08/20/25 @ 14:17 by HANNAH Chen) Fracture of ulna (Acute) Cervicalgia (Chronic) ADHD (Chronic) Hyperlipidemia (Chronic) Major depressive disorder, recurrent (Chronic) Generalized anxiety disorder (Chronic) Migraine headache with aura (Chronic) Medical History Stomach ulcer Surgical History History of esophagogastroduodenoscopy (EGD) S/P appendectomy (~2006) Family History Mother Depression Father No problems noted. Daughter No problems noted. Daughter No problems noted. Brother Depression Maternal Grandfather No problems noted. Maternal Grandmother No problems noted. Paternal Grandfather AAA (abdominal aortic aneurysm) Paternal Grandmother Lung cancer Social History (Updated 12/05/24 @ 17:24 by Mitali Shankar) Smoking/Tobacco Use Status: Current-Occasional Tobacco Type: e-cigarettes Tobacco: How many years used: 1 Quit status: has quit before Second Hand Exposure: No Smoking risk assessment performed?: Yes Alcohol Intake: current Alcohol Intake frequency: holidays/special occasions only Alcohol type: hard liquor Drug use: Daily Substance use type: former substance user and marijuana Adopted: No Caregiver/Support person: No Foster care: No Household members: spouse, family and children Housing: house Number of Children: 1 Communication Needs: None Education Level: college Details: some Do you need help understanding health information?: Never current occupation: self-employed Pets and animals: Yes (2 dogs) Pets and animals: horse(s) Sexually active: Yes Do you think of yourself as: straight/heterosexual Current gender identity: female What is your relationship status?: How often do you talk on the phone with friends or family?: three or more times per week How often do you get together with friends or relatives?: twice per week How often do you attend oriental orthodox or cheondoism services?: 1-3 times per year Do you belong to any clubs or organized social groups?: no Panel score (0-1 are the most socially isolated patients): 2 What type of physical activity do you participate in: walking Duration: > 90 minutes/day Frequency: 3-4 times per week Special avery needs: No Agree to transfusion: Yes Seatbelt use: always Helmet use: Yes Helmet use: sometimes Drive intox or ride w/intox mail truck driver: No Working smoke detector in home: Yes Fire extinguisher in home: Yes Carbon monox detector in home: Yes Firearms in home: Yes Firearms unloaded and locked: Yes Do you feel safe at home: Yes Do you feel safe in your relationship?: Yes Victim of physical abuse: No Victim of emotional abuse: No Victim of sexual abuse: No Female Reproductive History Menstrual Age of Menarche: 14 Duration of menses: 3-5 days control method: none History History 2 Para 2 Hx # Term Pregnancies 2 Multiple births 0 Hx # Pregnancies 0 Ectopic pregnancies 0 AB induced 0 Hx Number of Living Children 2 AB spontaneous 0 Past Pregnancies Del. Date GA/Weeks # Preg Succ Route Wgt Sex Labor Lgth Anesthesia Location Prov Complic 01/06/17 38 No vaginal 3005.049 g Female 5 hrs [facility] - Anea hemorrhage transfusion 06/18/19 39 No vaginal 3260.195 g Female [facility] DIANA Rubi hemorrhage Delivery Date: 01/06/17 Last Updated by: Melissa Hernandez CNM used nitrous only, fast labor, retained placenta with PPH and required blood transfusions x2 Delivery Date: 06/18/19 Last Updated by: Jade Stanton LPN Heavy bleeding started about one hour after delivery.
== END 2025-08-20 15:08 | disposition home or self-care (01) ==
PROVIDERS: Emergency Provider Physician Assistant; PCP Nurse Practitioner Family
DX: S52.202A Unspecified fracture of shaft of left ulna, initial encounter for closed fracture (principal); W55.12XA Struck by horse, initial encounter
CPT/HCPCS: 99283; 99284; 81025; 96372; 29125; 73080; 73090; 73110; J1885

== ENCOUNTER 2025-08-28 15:28 | Outpatient (CLI) | payer MEDICAID, SELFPAY ==
--- NOTE | 2025-08-28 14:24 | DI.RAD_ITS ---
Exam(s) XR FOREARM LT EXAM: XR FOREARM LT CLINICAL HISTORY: F/U L ULNA FX. TECHNIQUE: 2D digital imaging was performed. Two views. COMPARISON: No exams were available for comparison FINDINGS: BONES: Stable alignment fracture of the mid to distal 3rd of the ulna. No bony destructive lesion is seen. JOINTS: The visualized portions of the elbow and wrist joints are unremarkable. SOFT TISSUE: Posterior soft tissue swelling. IMPRESSION: Stable alignment of mid ulnar fracture. DATA REPOSITORY: RADIATION DOSE DELIVERED:
== END 2025-08-28 15:29 | disposition home or self-care (01) ==
LOC: DIORS 15:28
PROVIDERS: PCP Nurse Practitioner Family; Visit Provider Student in an Organized Health Care Education/Training Program
DX: S52.292A Other fracture of shaft of left ulna, initial encounter for closed fracture
CPT/HCPCS: 73090

== ENCOUNTER 2025-08-30 11:58 | Day surgery (SDC) | payer MEDICAID, SELFPAY ==
[2025-08-30] VITALS (18 sets, daily range): BP systolic 94–134; BP diastolic 50–107; PULSE 49–70; RESP 4–19; TEMP 35.9–36.8; O2SAT 91–100; BMI 22.1
[2025-08-30] MEDS: Acetaminophen 500 MG TAB 1000 MG PO (12:22)
[2025-08-30] MEDS: Celecoxib 200 MG CAP 400 MG PO (12:22)
[2025-08-30] MEDS: Lactated Ringers 1,000 ML 80 ML IV (12:30)
--- NOTE | 2025-08-30 12:45 | DI.RAD_ITS ---
Exam(s) XR FOREARM LT EXAM: XR FOREARM LT CLINICAL HISTORY: LEFT ULNAR FRACTURE. TECHNIQUE: 2D and realtime digital imaging was performed. COMPARISON: CR XR FOREARM LT from 08/28/2025 FINDINGS: Hard copy images show placement of a fixation plate along the mid ulna for fracture fixation. The alignment is anatomic. Please see procedure note for details. Fluoro time: 27.1seconds RADIATION DOSE DELIVERED: Denyr=0.33 mGy
--- NOTE | 2025-08-30 12:48 | W.ANESPRE ---
General Info Date of Service Date Performed: 08/30/25 Height: 5 ft 5 in Weight: 60.4 kg Body Mass Index (BMI): 22.1 Surgical Procedure: Operation Date: 08/30/25 15:25 Proposed Procedure Side Surgeon p Wrist ORIF Ulna Left Dann Garcia MD Meds Allergies and Home Medications Allergies Allergy/AdvReac Type Severity Reaction Status Date / Time phenazopyridine HCl (From AdvReac Intermediate nausea,vomiting, Verified 08/30/25 12:20 Pyridium) dizziness Home Medication ?Medication ?Instructions ?Recorded albuterol sulfate 90 mcg/actuation 2 puff inhalation Q6H PRN 02/01/24 aerosol inhaler (ProAir HFA) shortness of breath or wheezing #8.5 grams escitalopram oxalate 20 mg tablet 20 mg PO DAILY #90 tabs 12/05/24 dextroamphetamine-amphetamine ER 10 mg PO DAILY #28 caps 06/05/25 10 mg 24hr capsule,extend release ibuprofen 800 mg tablet 800 mg PO Q8H PRN pain #60 tabs 06/05/25 cyclobenzaprine 10 mg tablet 10 mg PO TID PRN #10 tabs 08/20/25 oxycodone 5 mg capsule 5 mg PO BID PRN #6 caps 08/20/25 Current Visit Medications: Current Medications Generic Name Dose Route Start Last Admin Trade Name Nareshq PRN Reason Stop Dose Admin Acetaminophen 1,000 mg 08/30/25 06:00 08/30/25 12:22 Acetaminophen 500 Mg Tab PO 08/30/25 23:59 1,000 mg PREOP MILAGROS Administration Celecoxib 400 mg 08/30/25 06:00 08/30/25 12:22 Celecoxib 200 Mg Cap PO 08/30/25 23:59 400 mg PREOP MILAGROS Administration Ringer's Solution 1,000 mls @ 80 mls/hr 08/30/25 06:00 08/30/25 12:30 IV 08/30/25 23:59 80 mls/hr INFUSION MILAGROS Administration Cefazolin Sodium/Dextrose 2 gm in 50 mls @ 100 mls/hr 08/30/25 06:00 Ancef Duplex IVPB 08/30/25 23:59 PREOP MILAGROS Tranexamic Acid/Sodium Chloride 1,000 mg in 100 mls @ 600 mls/hr 08/30/25 06:00 IVPB 08/30/25 23:59 PREOP MILAGROS Sodium Chloride 0 ml 08/30/25 06:00 Normal Saline Flush 10 Ml Syr IV 08/30/25 23:59 PRN PRN Sodium Chloride 0 ml 08/30/25 06:00 Normal Saline 10 Ml Vial IJ 08/30/25 23:59 DIRECTED PRN Sterile Water 0 ml 08/30/25 06:00 Water,Injection,Sterile 10 Ml Vial IJ 08/30/25 23:59 DIRECTED PRN PFSH Active Problems Active Problems: Problem Status Onset Code Fracture of ulna Acute 08/20/25 S52.209A Cervicalgia Chronic M54.2 ADHD Chronic F90.9 Hyperlipidemia Chronic E78.5 Major depressive disorder, recurrent Chronic F33.9 Generalized anxiety disorder Chronic F41.1 Migraine headache with aura Chronic Medical History Medical History Stomach ulcer Surgical History Surgical History History of esophagogastroduodenoscopy (EGD) S/P appendectomy (~2006) Tobacco Smoking/Tobacco Use Status: Current-Occasional Tobacco Type: e-cigarettes Passive smoking exposure: No Second hand exposure: No Alcohol Alcohol Intake: current Alcohol intake frequency: holidays/special occasions only Alcohol type: hard liquor Substance Use Substance use: Daily Substance use type: former substance user and marijuana Details: smoking THC-using for pain control Prental History History 2 Para 2 Hx # Term Pregnancies 2 Multiple births 0 Hx # Pregnancies 0 Ectopic pregnancies 0 AB induced 0 Hx Number of Living Children 2 AB spontaneous 0 Past Pregnancies Del. Date GA/Weeks # Preg Succ Route Wgt Sex Labor Lgth Anesthesia Location [facility] 01/06/17 38 No vaginal 3005.049 g Female 5 hrs [facility] - [facility] hemorrhage transfusion 06/18/19 39 No vaginal 3260.195 g Female [facility] DIANA Rubi hemorrhage Delivery Date: 01/06/17 Last Updated by: Melissa Hernandez CNM used nitrous only, fast labor, retained placenta with PPH and required blood transfusions x2 Delivery Date: 06/18/19 Last Updated by: Jade Stanton LPN Heavy bleeding started about one hour after delivery. Vital Signs and Lab Results Vital Signs Most Recent Vital Signs in EMR: Most Recent Vital Signs Temp Pulse Resp BP Pulse Ox 36.5 C 59 L 16 114/82 93 08/30/25 12:12 08/30/25 12:12 08/30/25 12:12 08/30/25 12:12 08/30/25 12:12 Point of Care Results Point of Care Results: POC- Test(urine) Negative 08/30/25 12:32 Imaging and Studies Imaging and Studies Study information below may be from another EMR and interpreted by another provider. Please see original notes in EMR for more complete details. Echocardiogram Summary: 07/15/16: Summary: 1. Left ventricle: The cavity size was below normal. Wall thickness was normal. Systolic function was normal. The estimated ejection fraction was 55-60%. Wall motion was normal; there were no regional wall motion abnormalities. 2. Right ventricle: The cavity size was normal. Wall thickness was normal. Systolic function was normal. Anesthesia Assessment and Plan Anesthesia History Personal History: No History of Anesthesia Complications Family History: No Family History of Anesthesia Complications Exercise Tolerance Exercise Tolerance: Metabolic Equivalents>4 Pertinent Negatives Pertinent Negatives: No Symptoms of GERD, No Major Cardiovascular Symptoms or Complaints and No Major Pulmonary Symptoms or Complaints Cardiac & Pulmonary Exam Cardiac Exam: Normal S1/S2 Heart Sounds Pulmonary Exam: Clear Bilateral Breath Sounds Implantable Cardiac Device Does patient have a Pacemaker or an ICD?: No Airway Exam Known Difficult Airway: No Mallampati Class: 3 Mouth Opening: Narrow (< 3cm) Thyromental Distance: Greater than 3 cm Neck Range of Motion: Full ROM Neck Circumference: Normal Teeth Condition: Normal Dentition ASA Classification ASA Score: ASA 2 Emergency Case?: No NPO Status NPO Status: NPO Clears >2 hours, Solids >8 hours Status Status: Negative HCG Anesthesia Plan Resuscitation Status: Full Code Anesthesia Technique: General Anesthesia Airway Planned: LMA Monitors Used: Standard Monitors and SedLine
[2025-08-30] MEDS: ceFAZolin 2 GM/50 ML BAG IVPB (14:04)
[2025-08-30] MEDS: TRANEXAMIC ACID/SOD. CHL. 1,000 MG/100 ML BAG 600 MG IVPB (14:11)
--- NOTE | 2025-08-30 14:13 | W.PM.DSUDISC ---
Date of service: 08/30/25 Discharge Plan Disposition Patient Disposition: Home Condition: Good Discharge Details Reason For Visit: [place] Vidal Attending Provider: Dann Garcia Primary Care Provider: Sultana Strong Home Meds and New Rx's Prescriptions: Continued ibuprofen 800 mg tablet 800 mg PO Q8H PRN (Reason: pain) Qty: 60 2RF dextroamphetamine-amphetamine 10 mg capsule,extended release 24hr 10 mg PO DAILY MDD 10mg Qty: 28 0RF escitalopram oxalate 20 mg tablet 20 mg PO DAILY Qty: 90 3RF albuterol sulfate [ProAir HFA] 90 mcg/actuation HFA aerosol inhaler 2 puff inhalation Q6H PRN (Reason: shortness of breath or wheezing) Qty: 8.5 0RF cyclobenzaprine 10 mg tablet 10 mg PO TID PRNQty: 10 0RF oxycodone 5 mg capsule 5 mg PO BID PRNQty: 6 0RF Patient Comments: didn't start taking Discharge Instructions Additional Instructions: Wrist Fracture Fixation Discharge Instructions Activity: You should keep the hand/wrist elevated as much as possible for the first few days. You may use the other fingers as tolerated but avoid trying to do too much too soon. You may perform light activities with the splint in place. Dressing/Cast: Your splint should stay in place at all times. Do NOT get it wet. You may loosen the CRISTINA wrap if you feel it is too tight and then rewrap more loosely. Medications: - You should take Tylenol and Ibuprofen for baseline pain control. - You have been prescribed a stronger pain medication, Oxycodone, by the ER which you should take for breakthrough pain. - You may apply ice over the wrist, just double bag so it doesn't get wet. Follow-up: 10-14 days Stand Alone Forms: Anesthesia Discharge Inst., Larissa Meza (DSU), Portal Information Referrals: Dann Garcia MD [ [facility] STAFF PHYSICIAN, Orthopaedic Surgical] - 09/11/25 8:15 am Equipment/Supplies: Splint Activity:: Elevate Remove Dressings/Wound Care:: Do Not Remove Shower/Bathe:: Cover Diet:: As Tolerated Discharge Orders Discharge Orders: Discharge Order (Routine); Ordered 08/30/25 Ordered By: Manuel Lux DS: Diagnosis Discharge Diagnosis (1) Fracture of ulna: Status: Acute
[2025-08-30] MEDS: Bupivacaine 0.25% Pres-Free W/EPI 30 ML VIAL (14:29)
[2025-08-30] MEDS: fentaNYL 100 MCG/2 ML VIAL IVP ×2 (16:25→16:38)
[2025-08-30] MEDS: HYDROmorphone 2 MG/ML SYR IVP (16:47)
--- NOTE | 2025-08-30 17:02 | W.ANESPOSTOP ---
Postoperative Evaluation Date, Time and Location Date Performed: 08/30/25 Time Performed: 17:02 Patient Location: Day Surgery Unit Vital Signs Most Recent Imported Vital Signs: Most Recent Vital Signs Temp Pulse Resp BP Pulse Ox 36.5 C 59 L 5 L 116/78 100 08/30/25 16:31 08/30/25 16:55 08/30/25 16:55 08/30/25 16:55 08/30/25 16:55 Pain Score Most Recent Pain Score: Most Recent Pain Score Pain Level 8 08/30/25 16:31 Assessment Mental Status: Awake (Alert & Oriented to Patient Baseline) Airway and Respiratory Function: Patent airway with normal (patient baseline) respiratory exam Cardiovascular Function: Hemodynamically Stable Hydration Status: Adequately Hydrated Nausea & Vomiting: No Nausea or Vomiting Pain: Pain is tolerable per patient Peripheral Nerve Block: Patient did not receive a nerve block
[2025-08-30] MEDS: oxyCODONE 5 MG TAB PO (17:07)
--- NOTE | 2025-08-30 19:21 | W.PM.OP ---
Operative Note Operative Note PRE-OP DIAGNOSIS: Left Ulna Shaft Fracture POST-OP DIAGNOSIS: same PROCEDURE: Open Reduction and Internal Fixation of Left Ulna Shaft Fracture SURGEON: Dann Garcia VEGETABLE CANNER: Yaa Howard ANESTHESIA TYPE: General LMA/ETT Refer to Anesthesia Record ESTIMATED BLOOD LOSS: 20 PATHOLOGY: none sent COMPLICATIONS: None Patient was transported to: PACU Patient's condition: stable Indications: Cherelle is a 30 year old female who I have seen for a ulnar shaft fracture. Given the mechanism of injury, sense of fracture mobility despite immobilization, fracture pattern, and effect on daily function, I recommended surgical fixation. I reviewed the risk of the procedure to include bleeding, infection co-pay, stiffness, damage to nerves and vessels, damage to muscles and tendons, malunion, nonunion, hardware prominence, need for repeat procedures. Despite these risks, the patient elected to proceed. Findings: There is a fracture about the midshaft of the ulna. There was a small butterfly fragment which was actually pyramidal shape in addition to a 2 to 3 mm shelf of bone from the dorsal cortex of the ulna and the proximal fragment. This shell of bone was reduced onto the proximal fragment and secured with a 2.0 millimeter screw. The fracture was otherwise reduced and fixed with a 10 hole 2.7 mm plate. Procedure Description: Cherelle was greeted in the preoperative holding area. The correct patient and site was confirmed and marked. The history and physical was updated. The consent was reviewed the patient and signed. The patient was taken to the operating room and placed in the supine position. All bony problems were well-padded. The left arm was placed onto a radiolucent hand table. A nonsterile tourniquet was placed high up on the arm. Prophylactic antibiotics in the form of cefazolin were administered. The left arm was prepped with ChloraPrep and draped in a standard fashion. A timeout was performed for safe surgery. The proposed surgical site was anesthetized with 0.25% bupivacaine. Then, A standard longitudinal incision was made overlying the subcutaneous ulna. This was taken down through the skin. The fascia over the lateral ulna was incised with the Metzenbaum scissor. Muscle bellies of the ECU and FCU were mobilized dorsally and volarly. Visualization of the fracture was easily obtainable. However, the butterfly fragment appeared to be larger on the x-ray was actually shaped somewhat like a pyramid. There is a large point of bone which was pointing into the intramedullary space. The actual size of the bone was difficult to manipulate and hold in place and consider fixation with a screw. Interestingly, there was another fragment of bone which was seen off the dorsal side of the proximal fragment. This had a wedge at an oblique angle. Without this piece there was a gap in the fracture. Therefore this place was placed in position and secured with a 2.0 millimeter screw. This had excellent compression of this fracture site. I then was able to reduce the fractures wedging the butterfly fragment into position between the proximal and distal fragments, reduction was confirmed with fluoroscopy. With this held into position I then placed a 10 hole 2.7 mm plate from the [employer] plating system. This was placed onto the dorsal surface of the ulna. It had excellent apposition to the bone. I then placed nonlocking screws proximal and distal to secure the plate to the bone. A total of three 2.7 millimeter screws proximally distally were placed. Range of motion of the wrist and the elbow showed no fracture mobility. X-rays were obtained which showed maintenance of fracture reduction and adequate positioning of the hardware. Deep tissues were then injected with 0.25% bupivacaine. Final x-rays were obtained which demonstrated adequate reduction and positioning of hardware. The deep dermal layer was closed with a 2-0 Vicryl. The skin was closed with 4-0 Monocryl, running in a subcuticular fashion. The wound was dressed with Xeroform, 4 x 4's, web roll. A short arm splint was applied. At the end the case all counts are correct. Patient was transferred back to the PACU in stable condition. Date of Procedure: 08/30/25
== END 2025-08-30 17:57 | disposition home or self-care (01) ==
PROVIDERS: PCP Nurse Practitioner Family; Visit Provider Student in an Organized Health Care Education/Training Program
PROC: (CPT 25545; principal; 2025-08-30 15:15)
DX: S52.202A Unspecified fracture of shaft of left ulna, initial encounter for closed fracture (principal); F90.9 Attention-deficit hyperactivity disorder, unspecified type; E78.5 Hyperlipidemia, unspecified; F41.1 Generalized anxiety disorder; G43.109 Migraine with aura, not intractable, without status migrainosus; W55.12XA Struck by horse, initial encounter
CPT/HCPCS: 25545; 76000; 81025; 73090; J0690; J1100; J1171; J1885; J2250; J2405; J2704; J3010